=== PATIENT | male | born 1975 | race Caucasian/White ===

== ENCOUNTER → 2016-06-06 | Outpatient (CLI) | payer OTHER ==
[~2016-06-06] MED LIST: CEPHALEXIN500 M1 PO; LORTAB 5/500 501 TAB PO; NEXIUM PO
== END ==
LOC: BHSO 15:55
DX: F90.0 Attention-deficit hyperactivity disorder, predominantly inattentive type (principal)

== ENCOUNTER → 2016-06-09 | Outpatient (CLI) | payer OTHER | LOC: COL.RAD 10:38 | DX: R22.2 Localized swelling, mass and lump, trunk (principal) ==

== ENCOUNTER → 2016-10-03 | Outpatient (CLI) | payer OTHER | LOC: BHSO 10:33 | DX: F90.0 Attention-deficit hyperactivity disorder, predominantly inattentive type (principal) ==

== ENCOUNTER → 2017-01-15 | Outpatient (CLI) | payer OTHER, BC | LOC: BHSO 10:55 | DX: F90.0 Attention-deficit hyperactivity disorder, predominantly inattentive type (principal) ==

== ENCOUNTER → 2017-06-13 | Outpatient (CLI) | payer BC | LOC: BHSO 08:58 | DX: F90.0 Attention-deficit hyperactivity disorder, predominantly inattentive type (principal) | CPT/HCPCS: G0463 ==

== ENCOUNTER → 2017-12-27 | Outpatient (CLI) | payer BC | LOC: BHSO 10:05 | DX: F90.0 Attention-deficit hyperactivity disorder, predominantly inattentive type (principal) | CPT/HCPCS: G0463 ==

== ENCOUNTER → 2018-05-14 | Outpatient (CLI) | payer BC | LOC: BHSO 09:44 | DX: F90.0 Attention-deficit hyperactivity disorder, predominantly inattentive type (principal) | CPT/HCPCS: G0463 ==

== ENCOUNTER → 2018-12-27 | Outpatient (CLI) | payer BC | LOC: BHSO 09:56 | DX: F90.0 Attention-deficit hyperactivity disorder, predominantly inattentive type (principal) | CPT/HCPCS: G0463 ==

== ENCOUNTER → 2019-07-09 | Outpatient (CLI) | payer BC | LOC: BHSO 10:27 | DX: F90.0 Attention-deficit hyperactivity disorder, predominantly inattentive type (principal) | CPT/HCPCS: G0463 ==

== ENCOUNTER → 2020-01-08 | Outpatient (CLI) | payer BC | LOC: BHSO 10:28 | DX: F90.0 Attention-deficit hyperactivity disorder, predominantly inattentive type (principal) | CPT/HCPCS: G0463 ==